=== PATIENT | male | born 1955 | race Caucasian/White ===

== ENCOUNTER 2017-01-02 17:02 | Emergency (ER) | payer BC, OTHER ==
[~2017-01-02] VITALS: Ht 182.9 cm; Wt 88.0 kg
[~2017-01-02 17:02] MED LIST: AMLO5TAB4 PO; ATEN-51 PO; FLAX100013 PO; MAGN250T5 PO; PRA40 PO; RANI75TA13 PO; UBID10CA5 PO; [UNRECOGNIZED DRUG - CODE] PO
[2017-01-02 17:04] VITALS: Ht 182.9 cm; Wt 88.0 kg
[2017-01-02] MEDS ORDERED: ASPIRIN 325 MG TAB PO STA (20:23)
--- NOTE | 2017-01-02 21:03 | RADRPT ---
PROCEDURE: XR Chest. CLINICAL INDICATION: Chest pain. TECHNIQUE: Single frontal chest x-ray. COMPARISON: Chest radiograph 12/26/2014. FINDINGS: The cardiomediastinal silhouette is unremarkable. No pneumothorax, pleural effusion or consolidation is seen. No acute osseous abnormality is noted. IMPRESSION: 1. No acute cardiopulmonary abnormality. RPTAT: HFN .Jerry Arteaga MD, Date Time Electronically viewed and signed by .Jerry Arteaga MD, on 01/02/2017 21:03 .N/
[2017-01-02 21:06] LABS: BASOPHIL # 0.1 10^3/ul (0.0-0.1); BASOPHILS % 0.6 % (0.0-2.0); EOSINOPHILS # 0.1 10^3/ul (0.0-0.5); EOSINOPHILS % 0.7 % (0.0-7.0); HEMATOCRIT 42.9 % (42.0-52.0); HEMOGLOBIN 14.8 g/dl (14.0-18.0); LYMPHOCYTES # 2.4 10^3/ul (0.8-2.9); LYMPHOCYTES % 22.9 % (15.0-51.0); MEAN CORPUSCULAR HEMOGLOBIN 31.9 pg (29.0-33.0); MEAN CORPUSCULAR HGB CONC 34.5 g/dl (32.0-37.0); MEAN CORPUSCULAR VOLUME 92.5 fl (82.0-101.0); MEAN PLATELET VOLUME 9.2 fl (7.4-10.4); MONOCYTE # 0.8 10^3/ul (0.3-0.9); MONOCYTES % 7.2 % (0.0-11.0); NEUTROPHILS % 68.3 % (39.0-77.0); PLATELET COUNT 234 10^3/UL (140-415); RED BLOOD COUNT 4.64 10^6/ul (4.70-6.10); RED CELL DISTRIBUTION WIDTH 12.1 % (11.5-14.5); WHITE BLOOD COUNT 10.4 10^3/ul (4.8-10.8)
[2017-01-02 21:23] LABS: ANION GAP 16 (8-16); BLOOD UREA NITROGEN 17 mg/dl (7-20); CALCIUM 9.4 mg/dl (8.4-10.2); CARBON DIOXIDE 26 mmol/L (21-31); CHLORIDE 101 mmol/L (97-110); CREATININE 0.99 mg/dl (0.61-1.24); GLUCOSE 104 mg/dl (70-220); POTASSIUM 3.9 mmol/L (3.5-5.1); SODIUM 139 mmol/L (135-144)
[2017-01-02] MEDS ORDERED: LOSA50TA6 PO (21:27)
[2017-01-02] MEDS ORDERED: TADA5TAB5 PO (21:28)
[2017-01-02] MEDS ORDERED: ASPI325T32 PO (21:29)
[2017-01-02] MEDS ORDERED: MAGN400T28 PO (21:30)
[2017-01-02] MEDS ORDERED: OMEG-135 PO (21:31)
[2017-01-02] MEDS ORDERED: UBID300C PO (21:34)
[2017-01-02 21:35] LABS: B-TYPE NATRIURETIC PEPTIDE 47 PG/ML (0-125); TROPONIN-I < 0.012 ng/ml (0.00-0.12)
[2017-01-02] MEDS ORDERED: ESOM40CA PO (21:39)
--- NOTE | 2017-01-03 00:29 | ERD ---
ER Documentation Chief Complaint Date/Time DATE: 01/03/17 TIME: 00:25 Chief Complaint Complains of chest pain and tightness x 2 days HPI This 61-year-old male came in for chest pain going on for several days. The pain is lower substernal and nonradiating. He does have a history of GERD. Denies shortness of breath nausea vomiting. Pain was made worse when he leaned forward. ROS All systems reviewed and are negative except as per history of present illness. Medications Home Meds Reported Medications Esomeprazole Mag Trihydrate (Nexium) 40 Mg Capsule.dr, 40 MG PO DAILY, #30 CAP 01/02/17 Ubidecarenone* (Co Q-10*) 300 Mg Capsule, 300 MG PO BID, CAP 01/02/17 [place]-3 Fatty Acids/Fish Oil (Fish Oil 1,000 mg Capsule) 1 Each Capsule, 1 EACH PO DAILY, CAP 01/02/17 Magnesium Oxide* (Magnesium Oxide*) 400 Mg Tablet, 400 MG PO BID, TAB 01/02/17 Aspirin (Aspirin) 325 Mg Tablet.dr, 325 MG PO BID 01/02/17 Tadalafil (Cialis) 5 Mg Tablet, 5 MG PO DAILY Y for NEEDED, TAB 01/02/17 Losartan Potassium* (Losartan Potassium*) 50 Mg Tablet, 50 MG PO DAILY, TAB 01/02/17 Flaxseed (FLAXSEED OIL) Unknown Strength Capsule, 1 CAP PO DAILY 12/26/14 Pravastatin Sodium* (Pravachol*) 40 Mg Tablet, 40 MG PO DAILY 10/12/11 Atenolol* (Atenolol*) 25 Mg Tablet, 25 MG PO BID 10/12/11 Discontinued Reported Medications Ubidecarenone* (Co Q-10*) Unknown Strength Capsule, PO BID, CAP 12/26/14 Magnesium Oxide (Magnesium) Unknown Strength Tablet, PO BID, TAB 12/26/14 Amlodipine Besylate* (Norvasc*) 5 Mg Tablet, 5 MG PO DAILY, TAB 12/26/14 Ranitidine Hcl* (Zantac*) 75 Mg Tablet, 75 MG PO DAILY 10/12/11 Asa/Calcium Carb/Mag/Al Hydrox (Aspir-Mox Ib Caplet) 325 Mg Tablet, 325 MG PO DAILY 10/12/11 Allergies Allergies: Coded Allergies: Penicillins (Verified Allergy, Unknown, RASH, 9/8/17) ampicillin (Verified Allergy, Unknown, RASH, 01/02/17) cephalexin (Unverified Allergy, Unknown, 01/02/17) PMhx/Soc History of Surgery: Yes (HERNIA REPAIR) Anesthesia Reaction: No Hx Neurological Disorder: No Hx Respiratory Disorders: No Hx Cardiac Disorders: Yes (HTN, HYPERLIPIDEMIA) Hx Psychiatric Problems: No Hx Miscellaneous Medical Probl: No Hx Alcohol Use: Yes (WINE DAILY) Hx Substance Use: No Hx Tobacco Use: No Smoking Status: Never smoker Physical Exam Vitals Vital Signs Date Time Temp Pulse Resp B/P Pulse Ox O2 Delivery O2 Flow Rate FiO2 01/02/17 22:26 61 15 142/85 100 Room Air 01/02/17 20:45 83 15 158/92 100 Room Air 01/02/17 17:04 97.1 75 20 192/87 99 Physical Exam Const: [] No distress Head: Atraumatic Eyes: Normal Conjunctiva ENT: Normal External Ears, Nose and Mouth. Neck: Full range of motion..~ No meningismus. Resp: Clear to auscultation bilaterally Cardio: Regular rate and rhythm, no murmurs Ext: No cyanosis, or edema Neur: Awake and alert Psych: Normal Mood and Affect Result Diagram: 01/02/17203901/02/172039 Results 24 hrs Laboratory Tests Test 01/02/17 20:40 White Blood Count 10.410^3/ul Red Blood Count 4.6410^6/ul Hemoglobin 14.8g/dl Hematocrit 42.9% Mean Corpuscular Volume 92.5fl Mean Corpuscular Hemoglobin 31.9pg Mean Corpuscular Hemoglobin Concent 34.5g/dl Red Cell Distribution Width 12.1% Platelet Count 74892^3/UL Mean Platelet Volume 9.2fl Neutrophils % 68.3% Lymphocytes % 22.9% Monocytes % 7.2% Eosinophils % 0.7% Basophils % 0.6% Nucleated Red Blood Cells % 0.0/100WBC Neutrophils # (Manual) 7.110^3/ul Lymphocytes # 2.410^3/ul Monocytes # 0.810^3/ul Eosinophils # 0.110^3/ul Basophils # 0.110^3/ul Nucleated Red Blood Cells # 0.010^3/ul Sodium Level 139mmol/L Potassium Level 3.9mmol/L Chloride Level 101mmol/L Carbon Dioxide Level 26mmol/L Anion Gap 16 Blood Urea Nitrogen 17mg/dl Creatinine 0.99mg/dl Glucose Level 104mg/dl Calcium Level 9.4mg/dl Troponin I < 0.012ng/ml B-Type Natriuretic Peptide 47PG/ML Current Medications Medications (Trade) Dose Ordered Sig/Edgar Route PRN Reason Start Time Stop Time Status Last Admin Dose Admin Aspirin (Aspirin) 325 mg ONCE STAT PO 01/02/17 20:23 01/02/17 20:24 DC 01/02/17 20:43 Procedures/MDM Atypical chest pain with no signs of acute ischemia. Patient was given aspirin in the emergency room. Is also given a GI cocktail. He did not take his Nexium this evening.. Low suspicion for acute coronary syndrome with nonischemic EKG as well as negative troponin. I am discharging with instructions to obtain an echocardiogram as an outpatient EKG interpretation: Normal sinus rhythm rate of 72, normal axis, no ST or T- wave changes concerning for acute ischemia, incomplete right bundle. Normal intervals. gauge operator interpretation: Normal sinus rhythm without arrhythmia Chest x-ray interpretation: See no acute process, see no pneumothorax, no pulmonary edema, infiltrate, no fractures p Departure Diagnosis: Primary Impression: Chest pain Condition: Stable KASHMIR CLAROS DO Jan 03, 2017 00:29
[2017-01-03] MEDS ORDERED: LIDOCAINE/MYLANTA 40 ML BTL PO ONE (00:30)
[2017-01-03] MEDS ORDERED: RANI150T9 PO (00:36)
[2017-01-03] MEDS ORDERED: KETOROLAC 30 MG INJ IV ONE (00:38)
[2017-01-03 01:07] VITALS: BP 132/82; PULSE 78; RESP 18
== END 2017-01-03 01:07 | disposition home or self-care (01) ==
LOC: E/R 17:02
DX: R07.2 Precordial pain (principal); I10 Essential (primary) hypertension; Z79.82 Long term (current) use of aspirin
CPT/HCPCS: 36415; 71010; 80048; 83880; 84484; 85025; 93005; 96374; 99285; J1885